=== PATIENT | male | born 1995 | race Caucasian/White ===

== ENCOUNTER 2018-03-29 17:56 | Emergency (ER) | payer OTHER ==
[2018-03-29 18:02] VITALS: BP 136/91
[2018-03-29] MEDS ORDERED: AMOXICILLIN/CLAVULANATE POT 875/125 MG TAB PO ONE (18:14)
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
== END 2018-03-29 18:23 | disposition home or self-care (01) ==
DX: S00.87XA Other superficial bite of other part of head, initial encounter (principal); Y04.1XXA Assault by human bite, initial encounter; Y99.8 Other external cause status; Y92.099 Unspecified place in other non-institutional residence as the place of occurrence of the external cause